=== PATIENT | female | born 1990 | race American Indian/Alaskan Native ===

== ENCOUNTER 2018-05-20 17:52 | Emergency (ER) | payer OTHER ==
[~2018-05-20] VITALS: Ht 154.9 cm; Wt 72.6 kg
[~2018-05-20 17:52] MED LIST: AMOCLA875 PO; Bactrim Ds Tab1 EACH PO; CEPH500 PO; DOXY100 PO; EXPECTA PRENAT1 EACH; IBUP800 PO; INSLIS75I; Keflex500 MG PO; LIDO2L MM; METR500 PO; OXYACE5T PO
[2018-05-20] MEDS ORDERED: Naprosyn500 MG PO (18:36)
[2018-05-20] MEDS ORDERED: PENVK500 PO (18:36)
== END 2018-05-20 18:45 | disposition home or self-care (01) ==
LOC: ER 17:52
DX: K04.7 Periapical abscess without sinus (principal); F17.200 Nicotine dependence, unspecified, uncomplicated
CPT/HCPCS: 64400; 99282-25

== ENCOUNTER 2021-05-13 23:00 | Inpatient (IN) | payer OTHER ==
[~2021-05-13] VITALS: Ht 154.9 cm; Wt 77.5 kg
[~2021-05-13 23:00] MED LIST changes: +ACET325 PO; +ALBU90OI INH; +AZIT250 PO; +BENZ100A PO; +CEPACOL SORE T1 EACH MM; +Cough Syru100 MG/5 M PO; +Flonase 0.05% N16 GM; +Florastor250 MG PO; +MONT10T PO; +Naprosyn500 MG PO; +Nicoderm Cq1 EAC1 TOP; +PENVK500 PO; +Prednisone10 MG PO; +QUET25 PO
[2021-05-14 03:02] LABS: BASOPHILS ABSOLUTE AUTO 0.03 K/mm3 (0.00-0.23); BASOPHILS PERCENT AUTO 0 % (0-2); EOSINOPHILS ABSOLUTE AUTO 0.23 K/mm3 (0.00-0.68); EOSINOPHILS PERCENT AUTO 3 % (0-6); Hematocrit 46.2 % (33.0-51.0); Hemoglobin 16.2 g/dL (11.5-16.0); IMMATURE GRAN ABSOLUTE AUTO 0.02 K/mm3 (0.00-0.10); IMMATURE GRAN PERCENT AUTO 0 % (0-1); LYMPHOCYTES ABSOLUTE AUTO 0.89 K/mm3 (0.84-5.20); LYMPHOCYTES PERCENT AUTO 10 % (21-46); MONOCYTES ABSOLUTE AUTO 0.13 K/mm3 (0.16-1.47); MONOCYTES PERCENT AUTO 2 % (4-13); Mean Corpuscular HGB 30.2 pg (26.0-34.0); Mean Corpuscular HGB Conc 35.1 g/dL (31.5-36.5); Mean Corpuscular Volume 86 fL (80-100); NEUTROPHILS ABSOLUTE AUTO 7.43 K/mm3 (1.96-9.15); NEUTROPHILS PERCENT AUTO 85 % (41-73); RDW Standard Deviation 40.2 fL (35.1-46.3); Red Blood Cell Count 5.37 M/mm3 (3.80-5.20); White Blood Cell Count 8.73 K/mm3 (4.00-11.30)
[2021-05-14 03:04] LABS: Mean Platelet Volume 9.4 fL (9.1-12.4); Platelet Count 212 K/mm3 (150-400)
[2021-05-14 03:17] LABS: Alanine Aminotransfer (ALT/SGP 25 U/L (12-78); Albumin/Globulin Ratio 1.1 (0.8-1.8); Alk Phos 72 U/L (50-136); Anion Gap 6 mmol/L (6-16); Aspartate Aminotrans (AST/SGOT 16 U/L (12-37); Bilirubin, Total 0.5 mg/dL (0.1-1.0); Blood Urea Nitrogen 12 mg/dL (8-24); Bun/Creatinine Ratio 15.7 (12.0-20.0); CO2, Blood 25 mmol/L (21-32); Calcium, Blood 8.5 mg/dL (8.5-10.1); Chloride, Blood 110 mmol/L (98-108); Creatinine, Blood 0.77 mg/dL (0.40-1.00); Globulin, Blood 3.8 g/dL (2.2-4.0); Glomerular Filtration Rate >60 (60-); Glucose, Blood 120 mg/dL (70-99); Potassium, Blood 3.8 mmol/L (3.5-5.5); Sodium, Blood 141 mmol/L (136-145); Total Protein, Blood 7.8 g/dL (6.4-8.2)
--- NOTE | 2021-05-14 06:20 | NUR ---
SHIFT SUMMARY ASSUMED CARE OF PT AT 0500. PT RESPIRATIONS ARE EVEN AND UNLABORED, THERE IS AN AUDIBLE WHEEZE. LUNG SOUNDS HAVE INSPIRATORY AND EXPIRATORY WHEEZES. PT WILL RESPOND TO PAINFUL STIMULUS BUT WILL IGNORE QUESTIONS ASKED, PT WAS ABLE TO NOD HER HEAD "NO" WHEN ASKED TO TAKE OFF HER SHORTS BUT WOULD NOT ANSWER ANY OTHER QUESTIONS. ER SUGGESTED THAT PT MIGHT HAVE TOOK HEROIN IN WHILE IN THE ER AND AFTER NURSE FOUND HER PIPE SHE HAD AN ANXIETY ATTACK AND WAS GIVEN ATIVAN. PT HAS BEEN SLEEPING SINCE. PT HAS TOW SMALL WOUNDS ON HER LEGS, DOCUMENTED IN CHART. CALL LIGHT IN REACH, BED IN LOWEST POSTION, BED ALARM ON.
[2021-05-14] MEDS ORDERED: PRED20 PO (10:34)
--- NOTE | 2021-05-14 11:55 | NUR ---
PT DISCHARGE TODAY WITH DISCHARGE ORDERS. NO ACUTE CHANGE FOR THE SHIFT, PT WAS GIVEN BREATHING TX AND IV STEROIDS PRIOR TO DISCHARGE. PT ALERT AND ORIENTED MOSTLY REFUSES TO ANSWER TO QUESTIONS, FLAT AFFECT. PT ALSO WAS LOOKING FOR HER PHONE WAS SAYING SHE HAD IT AND WAS USING IT WHEN SHE WAS IN THE ER, CALLED ER FOR MISSING BELONGINGS CALLED BACK NO PHONE WAS FOUND IN THE LOST AND FOUND DEPT. ALL DISCHARGE INSTRUCTIONS DISCLOSED WITH THE MOTHER AND PT, PRESCRIPTION SENT TO [facility]. MOTHER PROVIDED TRANSPORTATION, PT TRANSPORTED VIA WHEELCHAIR UPON DISCHARGE, ALL BELONGINGS SENT WITH THE PT
== END 2021-05-14 11:10 | disposition home or self-care (01) | DRG 203 ==
LOC: ER 23:00 → PCU 05-14 04:59
PROVIDERS: Physician Assistant; ADMIT Internal Medicine
PROC: 5A09357 Assistance with Respiratory Ventilation, Less than 24 Consecutive Hours, Continuous Positive Airway Pressure (ICD-10-PCS; principal; 2021-05-14)
DX: J45.901 Unspecified asthma with (acute) exacerbation (principal); F17.210 Nicotine dependence, cigarettes, uncomplicated; Z20.822 Contact with and (suspected) exposure to COVID-19; F19.10 Other psychoactive substance abuse, uncomplicated; F41.9 Anxiety disorder, unspecified; G47.00 Insomnia, unspecified; R45.1 Restlessness and agitation; Z79.51 Long term (current) use of inhaled steroids; Z79.899 Other long term (current) drug therapy; Z71.6 Tobacco abuse counseling; Z71.51 Drug abuse counseling and surveillance of drug abuser
CPT/HCPCS: 36415; 71045; 80053; 85025; 94644; 94645; 94660; 96365; 96375; 99284-25; J2060; J2930; J3475